=== PATIENT | male | born 1955 | race Caucasian/White ===

== ENCOUNTER 2024-07-15 05:14 | Outpatient (CLI) | payer MEDICARE, BC, SELFPAY | END 2024-07-15 05:15 | disposition home or self-care (01) | LOC: AMB 07-27 09:16 | PROVIDERS: PCP Family Medicine; Visit Provider Emergency Medicine Emergency Medical Services | DX: S09.93XA Unspecified injury of face, initial encounter (principal); R53.1 Weakness; W18.30XA Fall on same level, unspecified, initial encounter; Y92.008 Other place in unspecified non-institutional (private) residence as the place of occurrence of the external cause | CPT/HCPCS: A0425; A0429 ==

== ENCOUNTER 2024-07-15 05:58 | Inpatient (IN) | payer MEDICARE, BC, SELFPAY ==
[2024-07-15] VITALS (11 sets, daily range): BP systolic 103–133; BP diastolic 52–69; PULSE 60–80; RESP 16–20; TEMP 36.6–37.5; O2SAT 94–96; BMI 21.7; BMI 21.5
--- OUTSIDE RECORDS SUMMARY | 2024-07-15 06:00 | XMS_ITS | Clinical Summary ---
Author Organization [facility] Address [place], [place] [address] Care Team Providers Care Reporting Coordinator Name Role Phone Junito Yaneth Smith DO Primary Care Provider [phone] Allergies No known active allergies Medications cholecalciferol (Vitamin D-3) 2,000 unit capsule Take 4,000 units by mouth once daily. 0 09/25/2021 Active nitroglycerin (NITROSTAT) 0.4 mg sublingual tabletIndicatio ns:Abnormal stress ECG Place 1 Tablet (0.4 mg) under the tongue every 5 minutes if needed for Chest Pain. Up to 3 tablets in 15 minutes. 25 Tablet 04/03/2023 Active donepeziL (ARICEPT) 5 mg tablet Take 5 mg by mouth at bedtime. 10/08/2023 Active carbidopa-levod opa, 25-100 mg, (SINEMET 25-100) 25-100 mg tablet Take 1 Tablet by mouth three times daily. 10/08/2023 Active magnesium oxide 250 mg magnesium tablet Take 250 mg by mouth. Active pyridoxine, vitamin B6, (VITAMIN B6) 100 mg tablet Take 100 mg by mouth once daily. Active FOLIC ACID ORAL Take 1,000 mcg by mouth. Active cyanocobalamin (VITAMIN B12) 1,000 mcg tablet Take 1,000 mcg by mouth once daily. Active aspirin chewable 81 mg chewable tablet Chew 81 mg by mouth once daily with a meal. Active Active Problems Problem Noted Date Diagnosed Date Lacunar infarction 10/29/2023 Aneurysm of ascending aorta without rupture 02/2023 MCI (mild cognitive impairment) 05/13/2022 Overview (05/13/2022): Evaluated by neurology 2021 and had neuropsych testing. Possible early Dave Body Dementia per Neurology. See scanned consults Thoracic aortic aneurysm without rupture 018 Overview (05/21/2023): 4.0 cm on cardiac calcium score test 05/2017. Echocardiogram 06/2017 confirms 4cm so recommend repeat 6-12 months and then annually if stable 12/2017 echocardiogram stable at 4cm. Repeat 1 2019 echocardiogram stable at 4.0 2021 echocardiogram stable at 4.0 04/2023 The aortic root was borderline enlarged at 4.0 cm. Cardiology recommended follow up 2 years Family history of heart disease 03/13/2016 Overview (06/22/2017): 05/2017: See report. calcium score was 32 percentile which means he has mild calcified coronary artery plaque burden and generally overall low-moderate current cardiac risk per the report. The recomendations from this standpoint are for him to take a baby aspirin 81mg daily, eat healthy and exercise. The report did recommend his cholesterol be below the following levels: Total cholesterol <200, HDL >40, TG <200, LDL <100. Hyperplastic colon polyp 07/17/2014 Overview (07/17/2014): Colonoscopy 06/2014 polyp repeat in 10 years [facility] Overview (12/21/2014): 2000, evaluated by cardiology. Had echocardiogram, holter and stress test (see PAST MEDICAL HISTORY). Saw Dr Monterroso, cardiac electrophysiology and had multiple tests in research laboratory technician (not actual cath though) (see multiple scanned reports 2000, have good summaries): Thought vagal with evidence of autonomic dysfunction. Recommended treat with SSRI and sertraline started at that time. If episodes continued, discussed implanting possible loop recorder to verify significant bradycardia not contributing. BRADYCARDIA Resolved Problems Problem Noted Date Diagnosed Date Resolved Date FATIGUE 12/21/2014 Immunizations Name Administration Dates Next Due Td, Preservative Free (age >= 7 Years) 4 Tdap 02/15/2015 Zoster (Shingrix-RZV, recombinant) 07/24/2022 Family History Medical History Relation Name Comments Heart Disease Brother same valve dis ease-- at 41; 3 other brothers; 2 paternal uncles had MIs when around 70 Heart Disease Father valve disease- - at 52 Diabetes Mother type 2 later in life; 3 siblings as well Genetic Other Positive family history of premature cardiac deaths. Father at age 52. VT. Relation Name Status Comments Brother Father Mother Alive Other Social History Tobacco Use Types Packs/Day Years Used Date Smoking Tobacco: Never Passive Smoke Exposure: Never Smokeless Tobacco: Never Tobacco Cessation:Counseling Given: Yes Alcohol Use Standard Drinks/Week Comments Yes 0 (1 standard drink = 0.6 oz pur e alcohol) PHQ-2 Answer Date Recorded PHQ-2 TOTAL SCORE 0 03/15/2024 Social Connections Answer Date Recorded Do you often feel lonely or isolated from those around you? 0 10/29/2023 Alcohol Use Answer Date Recorded How often do you have a drink containing alcohol ? 2 07/24/2022 How many drinks containing a lcohol do you have on a typical day when you are drinking? 0 07/24/2022 How often do you have five or more drinks on one occasion? 0 07/24/2022 Financial Resource Strain Answer Date R ecorded Difficulty of Paying Living Expenses 3 10/29/2023 Difficulty of Paying Living Expenses Not on file 10/29/2023 Food Insecurity Answer Date Recorded Do you worry your food will run out before you are able to buy more? 1 10/29/2023 Transportation Needs Answer Date Record ed Does lack of transportation keep you from medica l appointments? 1 10/29/2023 Does lack of transportation keep you from work, meetings or getting things that you need? 1 10/29/2023 Housing Stability Answer Date Recorded What is your housing situation today? 1 10/29/2023 Utilities Answer Date Recorded Do you have trouble paying f or utilities (for example, heat, electricity, water, phone)? 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 Oxygen Saturation 100% 03/15/2024 11:14 AM CDT Inhaled Oxygen Concentration - - Weight 64.9 kg (143 lb) 03/15/2024 11:14 AM CDT Height 177.2 cm (5' 9.76) 03/15/2024 11:14 AM C DT Body Mass Index 20.66 03/15/2024 11:14 AM CDT Plan of Treatment Health Maintenance Due Date Last Done Comments Pneumococcal series for age 50+ (1 of 2 - PCV) 09/11/1974 RSV vaccine for adults or (1 - Risk 60-74 years 1-dose series) 2015 Zoster (shingles) series for age 50+ (2 of 2) 09/18/2022 07/24/2022 COVID-19 vaccine series ( - season) 2024 Influenza for age 65+ 02/14/2024 Colonoscopy through age 75 07/14/2024 07/14/2014 BMI (ht and wt on same day) for age 18+ 03/15/2025 03/15/2024, 07/24/2022, 07/10/2022, Additional history exists Medicare Wellness for age 65+ 03/16/2025 03/15/2024, 07/24/2022 Lipids for age 45-75 03/15/2029 03/15/2024, 06/23/2022, 09/11/2021, Additional history exists Tetanus booster 03/15/2034 03/15/2024, 02/15/2015 Tdap Completed 02/15/2015 Hepatitis C screening for ag e 18-79 Completed 01/13/2019 Procedures Procedure Name Priority Date/Time Associated Diagnosis Comments LIPID PANEL W REFLEX MEASURED LDL Routine 03/15/2024 12:12 PM CDT Aneurysm of ascending aorta without rupture (HC) ANTI HCV Routine 01/13/2019 1:44 PM CDT Need for hepatitis C screening test from Last 3 Months or Most Recently Relevant to Health Maintenance Results * (ABNORMAL) LIPID PANEL W REFLEX MEASURED LDL (03/15/2024 12:12 PM CDT) Pathologist [facility] [place] CHOLESTEROL, TOTAL 236(H) <200 mg/dL [facility] HDL CHOLESTEROL 72 > OR = 40 mg/dL [facility] TRIGLYCERIDES 77 <150 mg/dL [facility] LDL-CHOLESTEROL 146(H) mg/dL (calc) [facility] Comment: Reference range: <100 Desirable range <100 mg/dL for primary prevention; <70 mg/dL for patients with CHD or diabetic patients with > or = 2 CHD risk factors. LDL-C is now calculated using the Jeff calculation, which is a validated novel method providing better accuracy than the Friedewald equation in the estimation of LDL-C. Augustine SS et al. GOVIND. 2013;310(19): 2330-7121 (http://education.MedMark Services/faq/OTP625) CHOL/HDLC RATIO 3.3 <5.0 (calc) [facility] NON HDL CHOLESTEROL 164(H) <130 mg/dL (calc) [facility] Comment: For patients with diabetes plus 1 major ASCVD risk factor, treating to a non-HDL-C goal of <100 mg/dL (LDL-C of <70 mg/dL) is considered a therapeutic option. Blood BLOOD SPECIMEN / Unknown 03/15/2024 12:12 PM CDT 03/15/2024 12:13 PM CDT Yaneth Wild DO CHEMISTRY Final Resu lt [employer] [facility] [address] [place] [address], [facility] [address] [place] [address] * ANTI HCV (01/13/2019 1:44 PM CDT) Pathologist [facility] [place] HEPATITIS C ANTIBODY Non-React eden Non-React eden 01/14/2019 12:28 AM CDT [facility] Comment:Antibodies to HCV no t detected; does not exclude the possibility of exposure to HCV. Blood BLOOD SPECIMEN / Unknown Venipuncture / Unknown 01/13/2019 1:44 PM CDT 01/13/2019 2:13 PM CDT us Yaneth Smith Junito DO SEND OUTS Final Resu lt [facility] [address] [place] [address], [place] from Last 3 Months or Most Recently Relevant to Health Maintenance Insurance [employer] [place] BL[employer] MR PB ONLY MEDICARE PART B HB ONLY [employer] [place] BLUE HB ONLY Care Teams Reporting Coordinator Relationship Specialty Start Date End Date Yaneth Wild DO [address] [place] [address] PCP - General Family Practice 02/17/17
--- OUTSIDE RECORDS SUMMARY | 2024-07-15 06:00 | XMS_ITS | Clinical Summary ---
Author Organization [facility] Address [address] [place] [address] Care Team Providers Care Roofer Gypsum Name Role Phone Elsewhere, Pcp Primary Care Provider Unavailabl e Source Comments Patient records contain information from all sites at [facility]. For routine questions regarding patient records, call [phone] during business hours, M-F 8:00 AM - 5:00 PM Central Time. Record requests for emergency care only can be directed to [phone] at any time.[facility] Allergies No known active allergies Medications * This document contains information received from the source organization and may not represent a complete record from that organization. Lactobacillus acidophilus (Florajen Acidophilus) 20 billion cell capsule Take 1 capsule by mouth daily. Active cholecalciferol (VITAMIN D3) 50 mcg (2,000 Unit) capsule Take 100 mcg by mouth daily. Active pyridoxine, vitamin B6, (vitamin B-6) 100 mg tablet Take 100 mg by mouth daily. Active FOLIC ACID ORAL Take 1,000 mcg by mouth daily. Active cyanocobalamin (vitamin B-12) 1,000 mcg tablet Take 1,000 mcg by mouth daily. Active VITAMIN K2 ORAL Take by mouth daily. Vitamin K2 500 mcg tablet. Take 1/5 or 1/4 of a tablet daily. Active magnesium oxide (MAG-OX) 250 mg of magnesium tablet Take 250 mg by mouth daily. Active SALMON OIL-OMEGA-3 FATTY ACIDS ORAL Take 1,300 mg by mouth. Taken on an unscheduled basis, on days that salmon is not eaten. Active nitroglycerin (NITROSTAT) 0.[address] 0.4 mg under the tongue every 2 (two) hours as needed. 3 Active donepeziL (ARICEPT) 5 mg tablet Take 1 tablet (5 mg total) by mouth daily. 30 tablet 11 4 Active carbidopa-levodo pa (Sinemet) 25-100 mg per tablet Take 1 half tab 3 times daily for 1 week. If symptoms not better, increase by 1 half tab 3 times daily every week as needed per medication schedule to maximum of 3 tab 3 times daily. 270 tablet 12 4 Active Active Problems Problem Noted Date Diagnosed Date Unspecified Dementia Unspeci fied Severity Without Behavioral Disturbance Psychotic disturbance Mood Disturbance And Anxiety 10/08/2023 Social History Tobacco Use Types Packs/Day Years Used Date Smoking Tobacco: Never Passive Smoke Exposure: Never Smokeless Tobacco: Never [facility] [employer] Answer Date Recorded In the past 12 months has e [employer], gas, oil, or water [employer] threatened to shut off services in your home? No 10/01/2023 Exercise Vital Sign Answer Date Recorde d On average, how many days pe r week do you engage in moderate to strenuous exercise (like a brisk walk)? 3 days 09/29/2023 On average, how many minutes do you engage in exercise at this level? 20 min 09/29/2023 Hunger Vital Sign Answer Date Recorded Within the past 12 months, y ou worried that your food would run out before you got the money to buy more. Never true 10/01/19 24 Within the past 12 months, t he food you bought just didn't last and you didn't have money to get more. Never true 10/01/2023 PRAPARE - Transportation Answer Date Re corded In the past 12 months, has l ack of transportation kept you from medical appointments or from getting medications? No 09/13 In the past 12 months, has l ack of transportation kept you from meetings, work, or from getting things needed for daily living? No 10/01/2023 Nutrition Answer Date Recorded On average, how many serving s of fruits and vegetables do you eat per day (serving size is equal to 1 cup or approximately the size of a tennis ball)? 3-5 09/29/2023 Dental Answer Date Recorded Dental: Regular Dentist Yes 09/29/19 Employment Answer Date Recorded Employment status Retired 09/29/2023 Housing Stability Answer Date Recorded What is your living situation today? 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 Gender Identity Male 09/29/2023 2:03 PM CDT Sexual Orientation Straight 09/29/2023 2: 03 PM CDT Last Filed Vital Signs Vital Sign Reading Time Taken Comments Blood Pressure 111/66 10/05/2023 12:58 PM CDT Pulse 66 10/05/2023 12:58 PM CDT Temperature - - Respiratory Rate - - Oxygen Saturation - - Inhaled Oxygen Concentration - - Weight 64.6 kg (142 lb 6.7 oz) 10/05/2023 12:58 PM CDT Height 179.3 cm (5' 10.61) 10/05/2023 12:58 PM CDT Body Mass Index 20.08 10/05/2023 12:58 PM CDT Plan of Treatment Health Maintenance Due Date Last Done Comments CT Colonography 1955 Cologuard 1955 FIT 1955 Hepatitis C Screening 1955 Pneumococcal vaccine (50+ years) (1 of 1 - PCV) 09/11/2005 Zoster Vaccines (2 of 2) 09/18/2022 07/24/2022 COVID-19 Vaccine (1 - season) 2024 Influenza Vaccine (#1) 2024 Fall Risk Screen (Annual) 06/15/2024 Fasting Glucose for Diabetes Screening 10/04/2026 10/05/2023, 02/23/2023, 09/11/2021, Additional history exists Colonoscopy 07/13/2029 07/13/2019 Colorectal Cancer Screening 07/13/2029 DTaP,Tdap,and Td Vaccines (3 - Td or Tdap) 03/15/2034 03/15/2024, 02/15/2015 IPV Vaccines Aged Out No longer eligi ble based on patient's age to complete this topic Procedures Procedure Name Priority Date/Time Associated Diagnosis Comments COMPREHENSIVE METABOLIC PANEL, S/P Routine 10/05/2023 9:41 AM CDT Unspecified Dementia Unspecified Severity Without Behavioral Disturbance Psychotic disturbance Mood Disturbance And Anxiety (HCC) from Last 3 Months or Most Recently Relevant to Health Maintenance Results * Comprehensive Metabolic Panel (10/05/2023 9:41 AM CDT) Pathologist [facility] Potassium, S 4.4 3.6 - 5.2 mmol/L 10/05/2023 12:19 PM CDT DTL Sodium, S 142 135 - 145 mmol/L 10/05/2023 12:19 PM CDT DTL Chloride, S 104 98 - 107 mmol/L 10/05/2023 12:19 PM CDT DTL Bicarbonate, S 28 22 - 29 mmol/L 10/05/2023 12:15 PM CDT DTL Anion Gap 10 7 - 15 10/05/2023 12:19 PM CDT DTL BUN (Blood Urea Nitrogen), S 20 8 - 24 mg/dL 10/05/2023 12:15 PM CDT DTL Creatinine 1.02 0.74 - 1.35 mg/dL 10/05/2023 12:15 PM CDT DTL Estimated GFR (eGFR) 80 >=60 mL/min/BS A 10/05/2023 12:15 PM CDT DTL Comment: Estimated GFR calculated using the 2020 CKD_EPI creatinine equation. Calcium, Total, S 9.4 8.8 - 10.2 mg/dL 10/05/2023 12:15 PM CDT DTL Glucose, S 94 70 - 140 mg/dL 10/05/2023 12:15 PM CDT DTL Protein, Total, S 7.0 6.3 - 7.9 g/dL 10/05/2023 12:15 PM CDT DTL Albumin, S 4.6 3.5 - 5.0 g/dL 10/05/2023 12:15 PM CDT DTL Aspartate Aminotransferase (AST), S 20 8 - 48 U/L 10/05/2023 12:15 PM CDT DTL Alkaline Phosphatase, S 47 40 - 129 U/L 10/05/2023 12:15 PM CDT DTL Alanine Aminotransferase (ALT), S 26 7 - 55 U/L 10/05/2023 12:15 PM CDT DTL Bilirubin, Total, S 0.5 0.0 - 1.2 mg/dL 10/05/2023 12:15 PM CDT DTL Blood (Blood, Venous) 10/05/2023 9:41 AM CDT 10/05/2023 10:08 AM CDT Sha Aly M.D., Ph.D. LAB BLOOD ADD-ON Final Result [facility] [address] [place] [address], [place] DTL [facility] [address] [place] [address] from Last 3 Months or Most Recently Relevant to Health Maintenance Insurance [facility]ICARE [facility] Care Teams Roofer Gypsum Relationship Specialty Start Date End Date Elsewhere, Pcp PCP - General Internal Medicine 09/28/23
--- OUTSIDE RECORDS SUMMARY | 2024-07-15 06:00 | XMS_ITS | Clinical Summary ---
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 Medications Administered No information available. Allergies, Adverse Reactions, Alerts Allergy Name Reaction Description Start Date Severity Statu s Provider No known active allergies No known active allergies Mild Active Pieter Tirado MD Results Date Name Value Unit Range Flag Description Office Visit: Office Visit M carolyn problem, impaired proprioception Mri fax [id number] Assessment of cognition performed and results reviewed. Total score [MMS E] [id number] Mild Total scor e [MoCA] MMSE SCORE 24 Total scor e [MMSE] Internal Other: Verbal Autho rization/Emergency Contact - OBS VERBAL_EMER DONE Verbal authorization and emergency contact Internal Other: Authorizatio n - OBS [email or web address] Yes Authoriza tion: Release of Information - Authorize [facility] - Payment and Healthcare Operations ROIAUTHOTHER Yes Authoriz ation: Release of Information - Authorize Others/Insurance - Payment and Healthcare Operations HIECONSENT Yes Consent To Release information to the Health Information Exchange (HIE) [email or web address] Yes Authorizat ion: Authorization for Noran/MDC to leave messages, voicemail, send text messages, send emails AUTHRELHCARE Yes Authoriz ation: Release/Retrieval of Information to/from Healthcare Facilities, Pharmacy Benefit Payers and Providers AUTHPRIVPRAC Yes Authoriz ation: Notice of privacy practices AUTHBENEFIT Yes Authoriza tion: Assignment of Benefits and Payment Agreement Telemedicine: Telemedicine V isit fax MEDS REVIEW Done Documenta tion of current medications (procedure) Plan of Care Type Date Detail Pending order Follow up in cli tereso or telemedicine Pending order Follow up LASHELL in clinic or telemedicine Pending order Follow up LASHELL in clinic or telemedicine Pending order Patient Instruct ions Pending order Follow up teleme dicine Pending order Neuropsychology Evaluation Pending order Follow up teleme dicine Pending order Neuropsychology Evaluation Pending order Patient Instruct ions Procedures Code Procedure Name Date Entry Date [facility]-[id number] Documentation of current medicatio ns ORDERS Patient Instructions [facility]-[id number] Documentation of current medicatio ns LOINC 19669-1 MMSE ORDERS Patient Instructions Vital Signs No information available. Immunizations No information available. Advance Directives No information available.
--- OUTSIDE RECORDS SUMMARY | 2024-07-15 06:01 | XMS_ITS | Data Portability ---
Author Organization [place] - [place] [facility], [facility] Address [address] [place] [address] Care Team Providers Care Mechanical Estimator Name Role Phone JOSETTE WILD Primary Care Provider [phone] Assessment Encounter Date Assessment Date Assessment LastModified by Organization Details LastModified Time 01/26/2024 01/26/2024 68 year old male with a history of Parkinson's disease and lower urinary tract symptoms. Not available 01/25/2024 16:08:42 Plan of Treatment Reminders Order Date Submit Date Provider Last Modified By Organization Details Last Modified Time Details Appointments ESTABLISH ED 20 2024 08:40A M Maksim Walton PA-C Not available Not available Not available Lab None recorded. Referral None recorded. Procedures electromy ography studies (EMG) of anal or urethral sphincter , other than needle (PROC) 2023 024 [email or web address] Not available 02/03/2024 08:14:43 complex cystometr ogram with voiding pressure studies (PROC) 2023 024 Not available 02/03/2024 08:14:44 complex uroflowme try (PROC) 2023 024 Not available 02/03/2024 08:14:44 Surgeries None recorded. Imaging None recorded. Medication Orders None recorded. Patient TargetsNo targets recorded. Patient Instructions Encounter Date Encounter Id Patient Instructions Last Modified By Organization Details Last Modified Time 01/26/2024 [id number] Lower urinary tract symptoms/Overacti ve bladder: We reviewed the relevant anatomy and how neurologic conditions can contribute to overactive bladder and urgency with incontinence. I suspect this is the cause for Maverick's symptoms. That being said, we did discuss obstructive uropathy can be co-morbid requiring a different focus in management. He is emptying well, but I would like to check a pressure flow study to ensure he is not harboring mounting obstruction. If this is normal, the preference is to monitor for now given improvement with his medications. I will call when I have these results, but otherwise I would recommend at least annual assessment to ensure he does not develop obstruction. Not available 01/26/2024 10:13:59 Reason for Referral None Reported. Problems Name Problem SNOMED Code Status Onset Date Resolution Date Notes Provider Name and Address Organization Details Recorded Time Aneurysm of ascending aorta 598666710 Active 2023 Moi Meat null, [facility] 4 14:20:18 Mild neurocognitive disorder 843425872 Active 2023 Moi Meat null, [facility] 14:20:26 Polyp of colon 58053214 Active 2023 Moi Meat null, [facility] 14:20:35 Dementia 60630821 Active 2023 Moi Meat null, [facility] 4 14:20:51 Lacunar infarction 433556420 Active 2023 Moi Meat null, [facility] 4 14:21:28 Aneurysm of thoracic aorta 119414895 Active 2023 Moi Meat null, [facility] 14:21:39 Problem Notes None recorded. Procedures Surgical History Date Name Laterality Status Provider Name and Address Organization Details Recorded Time 4 COMPLEX VISIT completed Pasquale Jarquin MD [address] [place] [address],[address], [address], [facility] 01/25/2024 16:08:23 4 Past Data Reviewed completed Pasquale Jarquin MD [address] [place] [address],[address], [place], [address], [facility] 01/25/2024 16:08:22 4 Bladder Scan completed [facility] 01/26/2024 10:03:50 01/30/202 0 Colonoscopy completed Moi [facility] 01/26/2024 10:00:09 Imaging Results None recorded. Procedure Notes None recorded. Medical Equipment None Reported. Allergies No known drug allergies Medications Name Sig Start Date Stop Date Status Note LastModified by Organization Details LastModified Time donepezil 5 mg tablet TAKE 1 TABLET (5 MG TOTAL) BY MOUTH DAILY. active Not Available Not Available No t Available nitroglycer in 0.[address] 1 TABLET (0.4 MG) UNDER THE TONGUE EVERY 5 MINUTES IF NEEDED FOR CHEST PAIN. UP TO 3 TABLETS IN 15 MINUTES. 01/25 completed Not Available Not Available Not Available carbidopa 25 mg-levodopa 100 mg tablet TAKE 1/2 TABLET 3 TIMES DAILY FOR 1 WEEK. IF SYMPTOMS NOT BETTER, INCREASE 1/2 TABLET 3 TIMES DAILY EVERY WEEK NEEDED.MA X:3 TABS 3 TIMES DAILY. active Not Available Not Available No t Available Vitals Date Recorded Body height Provider Name an d Address Organization Details Last Updated DateTime 01/26/2024 177.8 cm Moi [facility] 09:58:17 Date Recorded Body mass index (BMI) Body weight Provider Name and Address Organization Details Last Updated DateTime 01/26/2024 20.1 kg/m2 36895.93 g Moi [facility] 01/26/2024 09:58:25 Social History Question Answer Notes LastModified by Organizat ion Details LastModified Time Tobacco Smoking Status [facility] 01/26/2024 09:59:35 What Is Your Level Of Alcohol Consumption? Occasional Information not available 01/26/2024 What Is Your Level Of Caffeine Consumption? Moderate Information not available 01/26/2024 What Was The Date Of Your Most Recent Tobacco Screening? 01/26/2024 Information not available 01/26/2024 Have You Ever Been Counseled For Unhealthy Alcohol Use? No Information not available 01/26/2024 Do You Use Any Illicit Or Recreational Drugs? No Information not available 01/26/2024 Has Tobacco Cessation Counseling Been Provided? No Information not available 01/26/2024 Do You Or Have You Ever Used Any Other Forms Of Tobacco Or Nicotine? No Information not available 01/26/2024 How Many Days In The Past Year Have You Consumed 5 Or More Drinks? 0 Information no t available 01/26/2024 Sex: Unknown Functional Status None recorded. Mental Status None recorded. Family History Relationship Description Onset Age of this Age Resolved Age Notes LastModified by Organization Details LastModified Time Father No current problems or disability [email or web address] Not available 01/25 09:59:07 Mother No current problems or disability ameath Not available 01/25 09:59:07 Medical History No medical history recorded. Immunizations Vaccine Type Date Status Note Provider Nam e and Address Organization Details Recorded Time zoster recombinant 07/24/2022 completed Moi leon [facility] 01/26/2024 09:58:29 Tdap 02/15/2015 completed Moi leon [facility] 01/26/2024 09:58:29 Past Encounters Encounter ID Performer Location Encounter Start Date Encounter Closed Date Diagnosis/Indication Diagnosis SNOMED-CT Code Diagnosis ICD10 Code Diagnosis Note [id number] Pasquale Jarquin MD [facility] [address] [place] [address] 01/26/2024 08:02:33 01/26/2024 10:28:32 Lower urinary tract symptoms 422784102 R39.9 Parkinson's disease 4904 9000 G20.A1 Overactive urinary bladder 628516559 N32.81 [id number] Pasquale Jarquin MD [facility] [address] [facility] [address] [place] [address] 02/23/2024 11:56:47 02/29/2024 09:08:35 Health Concerns Section Related Observation LastModified by Organization Detai ls LastModified Time None Recorded Concern Status LastModified by Organization Details LastModified Time None Recorded Advance Directives Directive None Recorded Payers Encounter Date Sequence Insurance Name Policy Number Policy Tripathi Covered Member ID Tripathi Member ID Guarantor Name 01/26/2024 1 [place]) [id number] Maverick Irving [id number] Maverick Irving 02/23/2024 1 [place] [id number] Maverick Irving [id number] Maverick Louumesh Notes Date Note Type Note Provider Name and Address Organization Details Recorded Time 01/26/2024 text/html This is a 68 yea r old male who is referred by Dr. Wild for the evaluation and management of lower urinary tract symptoms. He has been struggling with urinary urgency, frequency, and nocturia.These had been worsening in the last year.Maverick has a history of Lewy body dementia that has a component of Parkinson's.He is currently taking carbidopa/levodopa and donepezil.Since starting these medications he has noticed improvement.He has expected urinary discoloration but denies gross hematuria. His most recent prostate specific antigen was 0.52 ng/mL (09/11/2021) Pasquale Jarquin MD [address] [facility],[address], [place], [address], [facility] 01/26/2024 10:14:17
--- NOTE | 2024-07-15 06:21 | CRLHL7_ITS ---
For Patients: As a result of the Century Cures Act, medical imaging exams and procedure reports are released immediately into your electronic medical record. You may view this report before your referring provider. If you have questions, please contact your health care provider. INDICATION: Injury COMPARISON: None TECHNIQUE: CT examination of the cervical spine is performed without contrast using spiral technique. Thin axial, sagittal and coronal reconstructions were made. Please note that all CT scans at this facility use dose modulation, iterative reconstruction, and/or weight-based dosing when appropriate to reduce radiation dose to as low as reasonably achievable. FINDINGS: : Bone mineral density appears decreased. The height of the vertebral bodies and the caliber of the intervertebral disc space is normal. No significant bony arthritic changes. No visible acute fracture, dislocation or destructive process. IMPRESSION: No visible acute post-traumatic findings. Please note that all CT scans at this facility use dose modulation, iterative reconstruction, and/or weight-based dosing when appropriate to reduce radiation dose to as low as reasonably achievable. Dictated by Daniel Castro MD @ 07/15/2024 7:21:07 AM (Electronically Signed)
--- NOTE | 2024-07-15 06:21 | CRLHL7_ITS ---
For Patients: As a result of the Cures Act, medical imaging exams and procedure reports are released immediately into your electronic medical record. You may view this report before your referring provider. If you have questions, please contact your health care provider. INDICATION: Shortness of breath. COMPARISON: None available. TECHNIQUE: 1 view. FINDINGS: The patient is slightly rotated rightward. Medical Devices: None. Lung Volumes: Adequate inspiration. No significant atelectasis. Lungs: Asymmetrical right basilar coarse reticular opacities without coalescent consolidation. Findings are consistent with atypical (viral or mycoplasma) pneumonia. The left lung is clear. Pleura and Pleural spaces: No significant pleural effusion. No pneumothorax. Mediastinum: Normal cardiomediastinal silhouette. Bony Thorax and Soft Tissues: No significant incidental findings. IMPRESSION: Asymmetrical right basilar coarse reticular opacities without coalescent consolidation. Findings are consistent with atypical (viral or mycoplasma) pneumonia. No associated right parapneumonic effusion. Dictated by Nabil Benz MD @ 07/15/2024 6:49:52 AM (Electronically Signed)
--- NOTE | 2024-07-15 06:21 | CRLHL7_ITS ---
For Patients: As a result of the Century Cures Act, medical imaging exams and procedure reports are released immediately into your electronic medical record. You may view this report before your referring provider. If you have questions, please contact your health care provider. Indication: Injury Technique: CT examination of brain was performed. Imaging was acquired from the skull base to the vertex. Sagittal and coronal reformatted imaging was performed. Comparison: None Findings: No acute calvarial injury. Paranasal sinus mucosal inflammatory changes incidentally noted. There is cortical and central atrophy. Periventricular white matter changes are probably due to small-vessel ischemia. There is no mass effect, midline shift, hemorrhage, edema or subacute infarction. There is no abnormal extra-axial fluid collection. Impression: No acute posttraumatic findings. Involutional changes. Please note that all CT scans at this facility use dose modulation, iterative reconstruction, and/or weight-based dosing when appropriate to reduce radiation dose to as low as reasonably achievable. Dictated by Daniel Castro MD @ 07/15/2024 7:17:11 AM (Electronically Signed)
--- NOTE | 2024-07-15 06:22 | ED.GENADULT ---
HPI - General Adult General Chief complaint: Weakness <Isael Rodriguez MD - Last Filed: 07/15/24 06:25> Stated complaint: Weakness <Isael Rodriguez MD - Last Filed: 07/15/24 06:25> Time Seen by Provider: 07/15/24 06:28 <Isael Rodriguez MD - Last Filed: 07/15/24 06:25> History of Present Illness HPI narrative: Patient is a 68-year-old gentleman with Lewy body dementia who lives his of many years. He had a fall low last night striking his right cheek on the fireplace mantle. He has obvious swelling and minor abrasion on the cheek. More importantly the patient has had increasing agitation and worsening cognition over the last days to weeks. Patient is having a very hard time following direction and has had a very unsteady gait. Patient has been on stable Sinemet and Donepezil. Patient's is been taking extremely good care of him but she has noticed a major change in his level of functioning as well as his level of cognition. <Isael Rodriguez MD - Last Filed: 07/15/24 06:25> Related Data Home medications: Home Medications ?Medication ?Instructions ?Recorded ?Confirmed carbidopa 25 mg-levodopa 100 mg 0.5 tab PO DIRECTED 07/15/24 07/15/24 tablet donepezil 5 mg tablet 5 mg PO DAILY 07/15/24 07/15/24 <Isael Rodriguez MD - Last Filed: 07/15/24 06:25> Allergies/adverse reactions: Allergies Allergy/AdvReac Type Severity Reaction Status Date / Time No Known Drug Allergies Allergy Verified 01/21/23 12:38 <Isael Rodriguez MD - Last Filed: 07/15/24 06:25> Review of Systems Status of ROS: Reports: unobtainable due to medical condition <Isael Rodriguez MD - Last Filed: 07/15/24 06:25> [facility] Medical History: Medical History Lacunar infarction ?I63.81 - Other cerebral infarction due to occlusion or stenosis of small artery (ICD-10) MCI (mild cognitive impairment) ?G31.84 - Mild cognitive impairment of uncertain or unknown etiology (ICD-10) Thoracic aortic aneurysm without rupture ?I71.20 - Thoracic aortic aneurysm, without rupture, unspecified (ICD-10) Hyperplastic colon polyp ?K63.5 - Polyp of colon (ICD-10) Bradycardia ?R00.1 - Bradycardia, unspecified (ICD-10) Syncope ?R55 - Syncope and collapse (ICD-10) <Isael Rodriguez MD - Last Filed: 07/15/24 06:25> Social History: Social History Smoking Status: Never smoker Second hand tobacco smoke exposure: No How often do you have a drink containing alcohol: never AUDIT-C Alcohol total score: 0 Non-prescribed substance use: denies use <Isael Rodriguez MD - Last Filed: 07/15/24 06:25> Exam Narrative: Exam Narrative: EXAM GENERAL: Patient appears confused and lethargic. EYES: No scleral icterus. LYMPH: No supraclavicular or cervical lymphadenopathy. SKIN: Swelling with abrasion over the right cheek. EXT: No dependent lower extremity pedal edema. HEART: Regular rate and rhythm with no murmurs, rubs, or gallops. LUNGS: Clear to auscultation bilaterally with no crackles or wheezes. ABD: Soft, non tender, non distended. PSYCH: Patient does not follow commands and full neuro exam is unable to be performed. <Isael Rodriguez MD - Last Filed: 07/15/24 06:25> Const: Vital Signs, click to edit/add: Vital Signs - 24 hr 07/15/24 06:02 07/15/24 06:50 Temperature 98.6 F Pulse Rate [Right Pulse Oximeter] 80 Blood Pressure [Ri ght Upper Arm] 133/69 Pulse Oximetry 96 96 Oxygen Delivery Me thod Room Air <Isael Rodriguez MD - Last Filed: 07/15/24 06:25> Vital Signs, click to edit/add: Vital Signs - 24 hr 07/15/24 06:02 07/15/24 06:50 Temperature 98.6 F Pulse Rate [Right Pulse Oximeter] 80 Blood Pressure [Ri ght Upper Arm] 133/69 Pulse Oximetry 96 96 Oxygen Delivery Me thod Room Air <Lalitha Heredia MD - Last Filed: 07/15/24 08:14> Course Course ED Course: Very concerned about the patient's clinical presentation. I did start with CT head neck. Chest x-ray UA CMP CBC lactic acid. <Isael Rodriguez MD - Last Filed: 07/15/24 06:25> Very concerned about the patient's clinical presentation. I did start with CT head neck. Chest x-ray UA CMP CBC lactic acid. I was asked to follow up on the laboratory investigations of this patient. CBC shows mild pancytopenia. Mild hyponatremia 132. Normal lactate. Triple swab is positive for influenza A. <Lalitha Heredia MD - Last Filed: 07/15/24 08:14> Vital Signs Vital signs: Initial Vital Signs Temperature 98.6 F 07/15/24 06:02 Temperature Source Temporal Artery Scan 07/15/24 06:02 Pulse Rate 80 07/15/24 06:02 Blood Pressure 133/69 07/15/24 06:02 Blood Pressure Mean 90 07/15/24 06:02 Blood Pressure Position Sitting 07/15/24 06:02 Pulse Oximetry 96 07/15/24 06:02 Oxygen Delivery Method Room Air 07/15/24 06:02 Vital Signs Temperature 98.6 F 07/15/24 06:02 Pulse Rate 80 07/15/24 06:02 Blood Pressure 133/69 07/15/24 06:02 Pulse Oximetry 96 07/15/24 06:02 Oxygen Delivery Method Room Air 07/15/24 06:02 Temperature 98.6 F 07/15/24 06:02 Pulse Rate 80 07/15/24 06:02 Blood Pressure 133/69 07/15/24 06:02 Pulse Oximetry 96 07/15/24 06:50 Oxygen Delivery Method Room Air 07/15/24 06:02 <Isael Rodriguez MD - Last Filed: 07/15/24 06:25> Initial Vital Signs Temperature 98.6 F 07/15/24 06:02 Temperature Source Temporal Artery Scan 07/15/24 06:02 Pulse Rate 80 07/15/24 06:02 Blood Pressure 133/69 07/15/24 06:02 Blood Pressure Mean 90 07/15/24 06:02 Blood Pressure Position Sitting 07/15/24 06:02 Pulse Oximetry 96 07/15/24 06:02 Oxygen Delivery Method Room Air 07/15/24 06:02 Vital Signs Temperature 98.6 F 07/15/24 06:02 Pulse Rate 80 07/15/24 06:02 Blood Pressure 133/69 07/15/24 06:02 Pulse Oximetry 96 07/15/24 06:02 Oxygen Delivery Method Room Air 07/15/24 06:02 Temperature 98.6 F 07/15/24 06:02 Pulse Rate 80 07/15/24 06:02 Blood Pressure 133/69 07/15/24 06:02 Pulse Oximetry 96 07/15/24 06:50 Oxygen Delivery Method Room Air 07/15/24 06:02 <Lalitha Heredia MD - Last Filed: 07/15/24 08:14> Medications Administered Medications: Discontinued Medications Generic Name Dose Route Start Last Admin Trade Name Freq PRN Reason Stop Dose Admin Ceftriaxone Sodium 1 gm/ 100 mls @ 200 mls/hr 07/15/24 06:53 07/15/24 07:37 Sodium Chloride IVPB 07/15/24 06:54 200 mls/hr ONCE ONE Administration <Isael Rodriguez MD - Last Filed: 07/15/24 06:25> Discontinued Medications Generic Name Dose Route Start Last Admin Trade Name Freq PRN Reason Stop Dose Admin Ceftriaxone Sodium 1 gm/ 100 mls @ 200 mls/hr 07/15/24 06:53 07/15/24 07:37 Sodium Chloride IVPB 07/15/24 06:54 200 mls/hr ONCE ONE Administration <Lalitha Heredia MD - Last Filed: 07/15/24 08:14> Medical Decision Making MDM Narrative Medical decision making narrative: 60-year-old male with influenza a, weakness, confusion and a fall. Patient will be admitted for further management. <Lalitha Heredia MD - Last Filed: 07/15/24 08:14> Lab Data Labs: Lab Results 07/15/24 07/15/24 Range/Units 06:06 06:32 WBC 3.93 L (4.50-11.00) K/uL RBC 4.42 (4.30-5.90) m/uL Hgb 12.6 L (13.5-17.5) gm/dL Hct 36.8 L (37.0-53.0) % MCV 83 (80-100) fL MCH 29 (26-34) pg MCHC 34 (32-36) gm/dL RDW Coeff of Marquis 11.6 (11.5-15.5) % Plt Count 107 L (140-440) K/uL Neut % (Auto) 84.2 H (42.0-72.0) % Lymph % (Auto) 4.3 L (20-44) % Sunflower % (Auto) 11.2 H (0.0-11.0) % Eos % (Auto) 0.0 (0.0-7.0) % Baso % (Auto) 0.0 (0.0-3.0) % Neut # (Auto) 3.30 (1.7-7.0) K/uL Lymph # (Auto) 0.20 L (0.90-2.90) K/uL Sunflower # (Auto) 0.40 (0.00-0.90) K/UL Eos # (Auto) 0.00 (0.00-0.50) K/uL Baso # (Auto) 0.00 (0.00-0.30) K/uL Abs Immat Gran (auto) 0.00 (0.00-0.30) K/uL Imm/Tot Granulo (auto) 0.3 % Sodium 132 L (135-149) mmol/L Potassium 4.3 (3.6-5.1) mmol/L Chloride 99 (96-114) mmol/L Carbon Dioxide 27 (20-32) mmol/L Anion Gap 6 L (7-15) mEq/L BUN 18 (7-30) mg/dL Creatinine 0.8 (0.5-1.5) mg/dL Estimated Creat Clear 72.58 Estimated GFR 96 ml/min Glucose 128 H (60-115) mg/dL Lactate 0.8 (0.5-1.9) mmol/L Calcium 8.3 L (8.4-10.6) mg/dL Total Bilirubin 0.6 (0.1-1.5) mg/dL AST 23 (12-35) U/L ALT 16 (4-50) U/L Alkaline Phosphatase 43 (40-150) U/L Total Protein 6.5 (6.0-8.3) g/dL Albumin 3.8 (3.3-5.0) g/dL Procalcitonin 0.14 (<0.50) ng/mL SARS-CoV-2 (PCR) Negative SARS-CoV-2 (Negative) Influenza Type A (PCR) POSITIVE PCR FLU A A (Negative) Influenza Type B (PCR) Negative PCR FLU B (Negative) RSV (PCR) Negative PCR RSV (Negative) <Isael Rodriguez MD - Last Filed: 07/15/24 06:25> Lab Results 07/15/24 07/15/24 Range/Units 06:06 06:32 WBC 3.93 L (4.50-11.00) K/uL RBC 4.42 (4.30-5.90) m/uL Hgb 12.6 L (13.5-17.5) gm/dL Hct 36.8 L (37.0-53.0) % MCV 83 (80-100) fL MCH 29 (26-34) pg MCHC 34 (32-36) gm/dL RDW Coeff of Marquis 11.6 (11.5-15.5) % Plt Count 107 L (140-440) K/uL Neut % (Auto) 84.2 H (42.0-72.0) % Lymph % (Auto) 4.3 L (20-44) % Sunflower % (Auto) 11.2 H (0.0-11.0) % Eos % (Auto) 0.0 (0.0-7.0) % Baso % (Auto) 0.0 (0.0-3.0) % Neut # (Auto) 3.30 (1.7-7.0) K/uL Lymph # (Auto) 0.20 L (0.90-2.90) K/uL Sunflower # (Auto) 0.40 (0.00-0.90) K/UL Eos # (Auto) 0.00 (0.00-0.50) K/uL Baso # (Auto) 0.00 (0.00-0.30) K/uL Abs Immat Gran (auto) 0.00 (0.00-0.30) K/uL Imm/Tot Granulo (auto) 0.3 % Sodium 132 L (135-149) mmol/L Potassium 4.3 (3.6-5.1) mmol/L Chloride 99 (96-114) mmol/L Carbon Dioxide 27 (20-32) mmol/L Anion Gap 6 L (7-15) mEq/L BUN 18 (7-30) mg/dL Creatinine 0.8 (0.5-1.5) mg/dL Estimated Creat Clear 72.58 Estimated GFR 96 ml/min Glucose 128 H (60-115) mg/dL Lactate 0.8 (0.5-1.9) mmol/L Calcium 8.3 L (8.4-10.6) mg/dL Total Bilirubin 0.6 (0.1-1.5) mg/dL AST 23 (12-35) U/L ALT 16 (4-50) U/L Alkaline Phosphatase 43 (40-150) U/L Total Protein 6.5 (6.0-8.3) g/dL Albumin 3.8 (3.3-5.0) g/dL Procalcitonin 0.14 (<0.50) ng/mL SARS-CoV-2 (PCR) Negative SARS-CoV-2 (Negative) Influenza Type A (PCR) POSITIVE PCR FLU A A (Negative) Influenza Type B (PCR) Negative PCR FLU B (Negative) RSV (PCR) Negative PCR RSV (Negative) <Lalitha Heredia MD - Last Filed: 07/15/24 08:14> Discharge Plan Discharge Clinical Impression: Influenza A, Confusion, Fall <Isael Rodriguez MD - Last Filed: 07/15/24 06:25> Patient Disposition: Admitted As Observation <Isael Rodriguez MD - Last Filed: 07/15/24 06:25> Condition: Stable <Isael Rodriguez MD - Last Filed: 07/15/24 06:25> Prescriptions: No Action carbidopa-levodopa 25-100 mg tablet 0.5 tab PO DIRECTED Patient Comments: TAKE 1/2 TABLET 3 TIMES DAILY FOR 1 WEEK. IF SYMPTOMS NOT BETTER, INCREASE 1/2 TABLET 3 TIMES DAILY EVERY WEEK NEEDED.MAX:3 TABS 3 TIMES DAILY. donepezil 5 mg tablet 5 mg PO DAILY <Isael Rodriguez MD - Last Filed: 07/15/24 06:25> Follow Up/Referrals: Stortz,Yaneth A, DO [Primary Care Provider] - <Isael Rodriguez MD - Last Filed: 07/15/24 06:25>
--- OUTSIDE RECORDS SUMMARY | 2024-07-15 06:36 | XMS_ITS | Clinical Summary ---
Author Organization [facility] Address [address] [place] [address] Care Team Providers Care Utility Worker Name Role Phone Elsewhere, Pcp Primary Care Provider Unavailabl e Source Comments Patient records contain information from all sites at [facility]. For routine questions regarding patient records, call [phone] during business hours, M-F 8:00 AM - 5:00 PM Central Time. Record requests for emergency care only can be directed to [phone] at any time.[facility] Allergies No known active allergies Medications * [...] Passive Smoke Exposure: Never Smokeless Tobacco: Never [facility] [employer] Answer Date Recorded In the past 12 months has e I.Predictus, gas, oil, or water [employer] threatened to shut off services in your [...] your living situation today? 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 LAB BLOOD ADD-ON Final Result [facility] [address] [place] [address], [place] DTL [facility] [address] [place] [address] from Last 3 Months or Most Recently Relevant to Health Maintenance Insurance MEDICARE [facility] Care Teams Utility Worker Relationship Specialty Start Date End Date Elsewhere, Pcp PCP - General Internal Medicine 09/28/23
--- OUTSIDE RECORDS SUMMARY | 2024-07-15 06:36 | XMS_ITS | Clinical Summary ---
Author Organization [facility] Address [place], [place] [address] Care Team Providers Care Boat Rental Clerk Name Role Phone Junito Yaneth Smith DO Primary Care Provider [phone]- [phone] Allergies No known active allergies Medications cholecalciferol [...] cardiac electrophysiology and had multiple tests in dairy lab technician (not actual cath though) (see multiple [...] premature cardiac deaths. Father at age 52. [place]. 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 Respiratory Rate 20 07/10/2022 9:25 AM OIL WELL SERVICE OPERATOR Oxygen Saturation 100% 03/15/2024 11:14 AM CDT [...] [facility], [place] CHOLESTEROL, TOTAL 236(H) <200 mg/dL [facility] HDL CHOLESTEROL 72 > OR = 40 mg/dL [facility] TRIGLYCERIDES 77 <150 mg/dL [facility] LDL-CHOLESTEROL 146(H) mg/dL (calc) [facility] Comment: Reference range: <100 Desirable range <100 mg/dL for primary prevention; <70 mg/dL for patients with CHD or diabetic patients with > or = 2 CHD risk factors. LDL-C is now calculated using the Jeff calculation, which is a validated novel method providing better accuracy than the Friedewald equation in the estimation of LDL-C. Augustine SS et al. GOVIND. 2013;310(19): 9831-8286 (http://education.HomeMe.ru/faq/GZC180) CHOL/HDLC RATIO 3.3 <5.0 (calc) [facility] NON HDL CHOLESTEROL 164(H) <130 mg/dL (calc) [facility] Comment: For patients with diabetes plus 1 major ASCVD risk factor, treating to a non-HDL-C goal of <100 mg/dL (LDL-C of <70 mg/dL) is considered a therapeutic option. Blood BLOOD SPECIMEN / Unknown 03/15/2024 12:12 PM CDT 03/15/2024 12:13 PM CDT Yaneth Wild DO CHEMISTRY Final Resu lt [facility] [address] [place] [address], [facility] [address] [place] [address] * ANTI HCV (01/13/2019 1:44 PM CDT) Pathologist [facility] [place] HEPATITIS C ANTIBODY Non-React eden Non-React eden 01/14/2019 12:28 AM CDT [facility] Comment:Antibodies to HCV no t detected; does not exclude the possibility of exposure to HCV. Blood BLOOD SPECIMEN / Unknown Venipuncture / Unknown 01/13/2019 1:44 PM CDT 01/13/2019 2:13 PM CDT us Yaneth Smith Junito DO SEND OUTS Final Resu lt [facility] [address] [place] [address], [place] from Last 3 Months or Most Recently Relevant to Health Maintenance Insurance [employer] [place] [employer] PB ONLY MEDICARE PART B HB ONLY [employer] [place] BL[employer] HB ONLY Care Teams Boat Rental Clerk Relationship Specialty Start Date End Date Yaneth Wild DO [address] [place] [address] PCP - General Family Practice 02/17/17
--- OUTSIDE RECORDS SUMMARY | 2024-07-15 06:36 | XMS_ITS | Clinical Summary ---
Author Organization [facility] Address [address] , [address] [place] [address] Phone Care Team Providers Care Blocklayer Name Role Phone Nya Cleary Unavailable Unavailable Conditions or Problems Problem Name Problem Code Onset Date Status Entry Date Provider Comment Standard Description Annotate Mild cognitive impairment 373329991 (SNOMED CT) Active Pieter Tirado MD Mild neurocognitive disorder Memory loss 32153915 (SNOMED CT) Active Pieter Tirado MD Amnesia Thoracic aortic aneurysm without rupture I71.2 (ICD-10-CM) Active Pieter Tirado MD Thoracic aortic aneurysm, without rupture Syncope and collapse 558978268 (SNOMED CT) Active Pieter Tirado MD Syncope [...] and results reviewed. Total score [MMS E] [id number] Mild Total scor e [MoCA] MMSE SCORE [...] Procedures Code Procedure Name Date Entry Date [facility]-[id number] Documentation of current medicatio ns ORDERS Patient Instructions [facility]-[id number] Documentation of current medicatio ns LOINC 87426-2 MMSE ORDERS Patient Instructions Vital Signs No information available. Immunizations No information available. Advance Directives No information available.
[2024-07-15 06:44] LABS: Lactate* 0.8 mmol/L (0.5-1.9)
[2024-07-15 06:57] LABS: Hematocrit 36.8 % (37.0-53.0); Hemoglobin* 12.6 gm/dL (13.5-17.5); Immature Granulocytes Pct Auto 0.3 %; Lymphocytes Percent Auto 4.3 % (20-44); Mean Corpuscular HGB Conc 34 gm/dL (32-36); Mean Corpuscular Hemoglobin 29 pg (26-34); Mean Corpuscular Volume 83 fL (80-100); Monocytes Percent Auto 11.2 % (0.0-11.0); Neutrophils Percent Auto 84.2 % (42.0-72.0); Platelet Count* 107 K/uL (140-440); RDW Coefficient of Variation % 11.6 % (11.5-15.5); Red Blood Count 4.42 m/uL (4.30-5.90); White Blood Count* 3.93 K/uL (4.50-11.00)
[2024-07-15 07:00] LABS: Albumin* 3.8 g/dL (3.3-5.0); Chloride* 99 mmol/L (96-114); Potassium* 4.3 mmol/L (3.6-5.1); Sodium* 132 mmol/L (135-149)
[2024-07-15 07:03] LABS: Alanine Aminotransferase* 16 U/L (4-50); Alkaline Phosphatase* 43 U/L (40-150); Anion Gap 6 mEq/L (7-15); Aspartate Amino Transferase* 23 U/L (12-35); Bilirubin Total* 0.6 mg/dL (0.1-1.5); Blood Urea Nitrogen* 18 mg/dL (7-30); Carbon Dioxide* 27 mmol/L (20-32); Creatinine* 0.8 mg/dL (0.5-1.5); Est. Creatinine Clearance* 72.58; Estimated Glomerular Filt Rate 96 ml/min; Glucose* 128 mg/dL (60-115); Total Protein* 6.5 g/dL (6.0-8.3)
[2024-07-15 07:04] LABS: Calcium* 8.3 mg/dL (8.4-10.6)
[2024-07-15 07:05] LABS: Slide Review Reflex No
[2024-07-15] MEDS: cefTRIAXone 1 GM in 0.9 % SODIUM CHLORIDE Mini-bag 100 ML IVPB (07:37)
[2024-07-15 07:38] LABS: PCR FLU A POSITIVE PCR FLU A (Negative); PCR FLU B Negative PCR FLU B (Negative); PCR RSV Negative PCR RSV (Negative); SARS PCR* Negative SARS-CoV-2 (Negative)
[2024-07-15 07:44] LABS: Procalcitonin* 0.14 ng/mL (<0.50)
[2024-07-15] MEDS: AZITHROMYCIN 500 MG in 0.9 % SODIUM CHLORIDE 250 ml 250 ML 255 MG IVPB (08:13)
--- NOTE | 2024-07-15 10:52 | P.IMHP_ITS ---
Hospitalist- H&P: HPI History of Present Illness Date Seen: 07/15/24 Chief complaint: Weakness Narrative: Maverick Irving is a 68 year old male with past medical history of cognitive impairment, lower body dementia, thoracic aortic aneurysm and history of chronic pancytopenia who presents to the ED due to weakness and agitation. Patient started with symptoms of cough with phlegm, malaise and altered mental status about 5 days ago, but he got worse over the past 48 hours and he fell down, it was a witnessed fall by the , yesterday at 10:00 p.m. and he hit his right cheek. At baseline, patient has cognitive impairment due to his Lewy body dementia history in addition to gait problems and falls. He follows with Neurology and is on medication. Per his patient is more confused and agitated, he usually is not agitated at home. History is mostly taken from the and she denies fevers as she was using a thermometer, patient did not have abdominal pain or diarrhea but had malaise and productive cough. Patient does not have problems with swallowing. At the ED patient was hemodynamically stable, mild pancytopenia, chest x-ray showed Asymmetrical right basilar coarse reticular opacities without coalescent consolidation. Findings are consistent with atypical (viral or mycoplasma) pneumonia. Review of Systems Status of ROS: Reports: 6 or more systems reviewed and unremarkable except as noted in History and below [facility] Medical History (Updated 07/15/24 @ 12:51 by Marielle Oreilly MD) Pancytopenia ?D61.818 - Other pancytopenia (ICD-10) Lewy body dementia ?G31.83 - Neurocognitive disorder with Lewy bodies (ICD-10) ?F02.80 - Dementia in other diseases classified elsewhere, unspecified severity, without behavioral disturbance, psychotic disturbance, mood disturbance, and anxiety (ICD-10) Cognitive impairment ?R41.89 - Other symptoms and signs involving cognitive functions and awareness (ICD-10) Lacunar infarction ?I63.81 - Other cerebral infarction due to occlusion or stenosis of small artery (ICD-10) MCI (mild cognitive impairment) ?G31.84 - Mild cognitive impairment of uncertain or unknown etiology (ICD-10) Thoracic aortic aneurysm without rupture ?I71.20 - Thoracic aortic aneurysm, without rupture, unspecified (ICD-10) Hyperplastic colon polyp ?K63.5 - Polyp of colon (ICD-10) Bradycardia ?R00.1 - Bradycardia, unspecified (ICD-10) Syncope ?R55 - Syncope and collapse (ICD-10) Social History What is your current living situation?: I presently have a place to live Problems where you live: no known problems Problems where you live details: none In the past 12 months, utilities in danger of being shut off: no In past 12 months, lack of transportation kept you from medical appts, meetings, work, or getting things needed for daily living: no In the past 12 mos, have been you worried that your food would run out before you had money to buy more?: never true In the past 12 mos, the food you bought just didn't last and you didn't have money to buy more?: never true Highest level of school completed/degree received: Associate degree: occupational, technical, vocational program Smoking Status: Never smoker Second hand tobacco smoke exposure: No How often do you have a drink containing alcohol: monthly or less How often do you have six or more drinks on one occasion: Never AUDIT-C Alcohol total score: 1 Non-prescribed substance use: denies use Caffeine: Yes (Coffee) How often does anyone, including family, friends and others, physically hurt you : never How often does anyone, including family, friends and others, insult or talk down to you: never How often does anyone, including family, friends and others, threaten you with harm: never How often does anyone, including family, friends and others, scream or curse at you: never Meds Home Medications and Allergies Home Medications ?Medication ?Instructions ?Recorded ?Confirmed ?Type carbidopa 25 mg-levodopa 100 mg 0.5 tab PO DIRECTED 07/15/24 07/15/24 History tablet donepezil 5 mg tablet 5 mg PO DAILY 07/15/24 07/15/24 History Allergies Allergy/AdvReac Type Severity Reaction Status Date / Time No Known Drug Allergies Allergy Verified 01/21/23 12:38 Exam Narrative: Exam Narrative: Physical exam GENERAL: Sleepy, confused, no acute distress. HEAD AND NECK: Atraumatic, normocephalic. 1 cm contusion on Rt cheek. CARDIOVASCULAR: RRR. Normal S1, S2. No murmurs. RESPIRATORY: Clear to auscultation B/L. Good air entry B/L. No wheezes or rhonchi. GASTROINTESTINAL: Not distended, not tender to palpation. NEUROLOGY: Confuse. Normal speech. PSYCH: Unable to assess. Const: Vital Signs, click to edit/add: Vital Signs - 24 hr 07/15/24 06:02 07/15/24 06:50 07/15/24 09:55 Temperature 98.6 F 99.5 F Pulse Rate [Pulse Oximeter] 73 Pulse Rate [Right Pulse Oximeter] 80 Respiratory Rate 20 Blood Pressure [Le ft Arm] 117/52 L Blood Pressure [Ri ght Upper Arm] 133/69 Pulse Oximetry 96 96 94 Oxygen Delivery Me thod Room Air Room Air Hospitalist - H&P: Result Labs Labs: Short CBC 07/15/24 Range/Units 06:32 WBC 3.93 L (4.50-11.00) K/uL Hgb 12.6 L (13.5-17.5) gm/dL Hct 36.8 L (37.0-53.0) % Plt Count 107 L (140-440) K/uL BMP 07/15/24 06:32 Sodium 132 L Potassium 4.3 Chloride 99 Carbon Dioxide 27 BUN 18 Creatinine 0.8 Glucose 128 H Calcium 8.3 L Liver Function 07/15/24 Range/Units 06:32 Total Bilirubin 0.6 (0.1-1.5) mg/dL AST 23 (12-35) U/L ALT 16 (4-50) U/L Alkaline Phosphatase 43 (40-150) U/L Albumin 3.8 (3.3-5.0) g/dL Imaging Chest x-ray: Attestation: I have reviewed the pertinent imaging results. Radiologist's impression: TECHNIQUE: 1 view. FINDINGS: The patient is slightly rotated rightward. Medical Devices: None. Lung Volumes: Adequate inspiration. No significant atelectasis. Lungs: Asymmetrical right basilar coarse reticular opacities without coalescent consolidation. Findings are consistent with atypical (viral or mycoplasma) pneumonia. The left lung is clear. Pleura and Pleural spaces: No significant pleural effusion. No pneumothorax. Mediastinum: Normal cardiomediastinal silhouette. Bony Thorax and Soft Tissues: No significant incidental findings. IMPRESSION: Asymmetrical right basilar coarse reticular opacities without coalescent consolidation. Findings are consistent with atypical (viral or mycoplasma) pneumonia. No associated right parapneumonic effusion. Dictated by Nabil Benz MD @ 07/15/2024 6:49:52 AM (Electronically Signed) Assessment and Plan Assessment and plan (1) Encephalopathy: Problem comment: -Hx of Lewi body dementia, patient has confusion at baseline but currently he is more confused and is agitated which is not usual for him. -patient is currently on carbidopa/levodopa and donepezil for treatment of Lewy body dementia. -patient has problems with his gait and has cognitive impairment due to his disease. -likely this acute AMS is due to influenza A infection/ PNA. -will treat for atypical pneumonia. Status: Acute (2) Atypical pneumonia: Problem comment: -Flu A +ve -Symptoms started 5 days ago, he likely will not benefit from Tamiflu at this time she like. -CXR showed: Asymmetrical right basilar coarse reticular opacities without coalescent consolidation. Findings are consistent with atypical (viral or mycoplasma) pneumonia. -ordered urine antigen for pneumonia and legionella. -F/up Bl Cx. -will treat empirically for now, for hospitalized patients will start treatment with ceftriaxone plus a macrolide (first-line). Status: Acute (3) Influenza A: Problem comment: -Symptoms started 5 days ago, he likely will not benefit from Tamiflu at this time. -CXR showed: Asymmetrical right basilar coarse reticular opacities without coalescent consolidation. Findings are consistent with atypical (viral or mycoplasma) pneumonia. Status: Acute (4) Lewy body dementia: Problem comment: -symptoms started 3 years ago, but diagnosis was confirmed recently. -patient is currently on carbidopa/levodopa and donepezil. -patient has problems with his gait and has cognitive impairment due to his d isease. Status: Chronic (5) Frequent falls: Problem comment: -Last fall was yesterday around 10:00 p.m. 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 -needs to follow-up as an outpatient Status: Acute (8) Thoracic aortic aneurysm without rupture: Problem comment: -size ~ 4 cm -F/up is done outpt Status: Acute Total Time Spent Total Time Spent: Time spent: Today I spent 75 minutes seeing the patient, discussing the patient with ER staff, reviewing Expanse and EPIC notes/diagnostics, discussing the care plan with our care time that includes social work, PT/OT, pharmacy, RT, mcfp and documenting my impressions and plan in the medical record.
[2024-07-15] MEDS: 0.9 % SODIUM CHLORIDE 1000 ml 1,000 ML IV (12:19)
[2024-07-15] MEDS: 0.9 % SODIUM CHLORIDE 1000 ml 1,000 ML 100 ML IV (13:25)
[2024-07-15 13:50] LABS: Appearance Urine Clear (Clear); Bilirubin Urine Negative (Negative); Blood Urine Trace-intact (Negative); Color Urine Yellow (Yellow); Glucose Urine Negative (Negative); Ketones Urine Negative (Negative); Leukocyte Esterase Urine Negative (Negative); Nitrite Urine Negative (Negative); Protein Urine Negative (Negative); pH Urine 6.5 (5.0-8.5)
[2024-07-15] MEDS: CARBIDOPA-LEVODOPA 25-100 TABLET 1 TAB PO ×2 (14:05→20:25)
[2024-07-15 14:17] LABS: RBC Urine 0-2 (0-2); WBC Urine 0-2 (0-5)
--- NOTE | 2024-07-15 15:37 | REH.OT ---
OT/PT orders received, chart reviewed, noted hx of lewy body dementia, currently having more confusion with infection. Patient restless, confused, had been incontinent in bed, then resting, RN requests to see tomorrow. Will reschedule.
--- NOTE | 2024-07-15 19:18 | PC.NURSE ---
End of Shift: Patient cooperative. VSS, afebrile. SpO2 maintained above 90% on RA. Tolerating regular diet. 2A with walker and gait belt to commode this shift. Bed alarm on.
[2024-07-15] MEDS: MELATONIN 3 MG TABLET PO (20:25)
[2024-07-15] MEDS: DONEPEZIL 5 MG TABLET PO (20:26)
[2024-07-15] MEDS: ENOXAPARIN 40 MG/0.4 ML INJ SUBCUT (20:26)
[2024-07-16] VITALS (7 sets, daily range): BP systolic 105–129; BP diastolic 59–85; PULSE 55–65; RESP 16–18; TEMP 36.4–36.8; O2SAT 95–99
[2024-07-16] MEDS: 0.9 % SODIUM CHLORIDE 1000 ml 1,000 ML 100 ML IV (02:09)
--- NOTE | 2024-07-16 06:12 | PC.NURSE ---
End of shift note [id number]: Pt alert & oriented to self only with baseline dementia. Pt requires assist of 2 with FWW and gait belt to transfer to BSC. Pt continent of bladder. IV NS administered per order. No c/o pain or N/V throughout the shift. Pt able to reposition independently when in bed. Tele in place with NSR noted. Pt has slept comfortably throughout the shift. Bed alarm on, call light within reach. ?
[2024-07-16] MEDS: AZITHROMYCIN 500 MG in 0.9 % SODIUM CHLORIDE 250 ml 250 ML 255 MG IVPB (06:24)
[2024-07-16] MEDS: CARBIDOPA-LEVODOPA 25-100 TABLET 1 TAB PO ×3 (06:28→21:01)
[2024-07-16 06:44] LABS: Hematocrit 33.6 % (37.0-53.0); Hemoglobin* 11.1 gm/dL (13.5-17.5); Mean Corpuscular HGB Conc 33 gm/dL (32-36); Mean Corpuscular Hemoglobin 28 pg (26-34); Mean Corpuscular Volume 86 fL (80-100); Platelet Count* 99 K/uL (140-440); Red Blood Count 3.91 m/uL (4.30-5.90); White Blood Count* 2.93 K/uL (4.50-11.00)
[2024-07-16 06:56] LABS: Slide Review Reflex No
[2024-07-16 07:02] LABS: Chloride* 106 mmol/L (96-114); Sodium* 137 mmol/L (135-149)
[2024-07-16 07:05] LABS: Creatinine* 0.8 mg/dL (0.5-1.5); Est. Creatinine Clearance* 62.34; Estimated Glomerular Filt Rate 96 ml/min
[2024-07-16 07:06] LABS: Anion Gap 7 mEq/L (7-15); Blood Urea Nitrogen* 19 mg/dL (7-30); Carbon Dioxide* 24 mmol/L (20-32); Glucose* 88 mg/dL (60-115)
[2024-07-16] MEDS: cefTRIAXone 1 GM in 0.9 % SODIUM CHLORIDE Mini-bag 100 ML IVPB (08:46)
[2024-07-16 10:15] LABS: Legionella pneumo Ag Urine L. pneumo Negative (Negative); S pneumo Ag Urine S. pneumo Negative (Negative)
--- NOTE | 2024-07-16 13:12 | P.IMPN_ITS ---
Progress Note: A&P Assessment and plan (1) Encephalopathy: Problem details: -Improving encephalopathy, patient is alert awake today July 16, and answering questions appropriately -Hx of Lewi body dementia, patient has confusion at baseline but currently he is more confused and is agitated which is not usual for him. -patient is currently on carbidopa/levodopa and donepezil for treatment of Lewy body dementia. -patient has problems with his gait and has cognitive impairment due to his d isease. -likely this acute AMS is due to influenza A infection/ PNA. -will treat for atypical pneumonia. Status: Acute (2) Atypical pneumonia: Problem details: -Flu A +ve -Symptoms started 5 days ago, he likely will not benefit from Tamiflu at this time she like. -CXR showed: Asymmetrical right basilar coarse reticular opacities without coalescent consolidation. Findings are consistent with atypical (viral or mycoplasma) pneumonia. -ordered urine antigen for pneumonia and legionella. -F/up Bl Cx. -will treat empirically for now, for hospitalized patients will start treatment with ceftriaxone plus a macrolide (first-line). Status: Acute (3) Influenza A: Problem details: -Symptoms started 5 days ago, he likely will not benefit from Tamiflu at this time. -CXR showed: Asymmetrical right basilar coarse reticular opacities without coalescent consolidation. Findings are consistent with atypical (viral or mycoplasma) pneumonia. Status: Acute (4) Lewy body dementia: Problem details: -symptoms started 3 years ago, but diagnosis was confirmed recently. -patient is currently on carbidopa/levodopa and donepezil. -patient has problems with his gait and has cognitive impairment due to his disease. Status: Chronic (5) Frequent falls: Problem details: -Last fall was yesterday around 10:00 p.m. 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 -needs to follow-up as an outpatient Status: Acute (8) Thoracic aortic aneurysm without rupture: Problem details: -size ~ 4 cm -F/up is done outpt Status: Acute Time Spent With Patient Total time spent: Today I spent 50 minutes seeing the patient, reviewing Expanse and EPIC notes/diagnostics, discussing the care plan with our care time that includes social work, PT/OT, pharmacy, RT, chcf and documenting my impressions and plan in the medical record. Subjective Date Seen: 07/16/24 Interval history: No acute events overnight, patient states that he feels much better and he was less confused than yesterday, today he is alert awake and answering questions appropriately, we need physical therapy and occupational therapy recommendations for discharge. Exam Narrative: Exam Narrative: Physical exam GENERAL: Comfortable, no acute distress. HEAD AND NECK: Atraumatic, normocephalic CARDIOVASCULAR: RRR. Normal S1, S2. No murmurs. RESPIRATORY: Clear to auscultation B/L. Good air entry B/L. No wheezes or rhonchi. GASTROINTESTINAL: Not distended, not tender to palpation. NEUROLOGY: Alert, awake, oriented X 2. Normal speech. Answering questions appropriately. PSYCH: Normal mood, normal affect. Const: Vital Signs, click to edit/add: Vital Signs - 24 hr 07/15/24 14:08 07/15/24 14:40 07/15/24 16:19 Temperature 98.0 F Pulse Rate 63 Pulse Rate [Pulse Oximeter] 64 Respiratory Rate 20 20 Blood Pressure [Le ft Arm] 104/55 L Pulse Oximetry 94 94 Oxygen Delivery Il thod Room Air Room Air 07/15/24 17:31 07/15/24 20:23 07/15/24 22:18 Temperature 99.2 F Pulse Rate Pulse Rate [Pulse Oximeter] 64 64 64 Respiratory Rate 20 20 20 Blood Pressure [Le ft Arm] 118/65 Pulse Oximetry 94 [facility] 07/15/24 22:35 07/15/24 23:00 07/16/24 03:00 Temperature 97.9 F 97.5 F L Pulse Rate 65 Pulse Rate [Pulse Oximeter] 60 60 Respiratory Rate 16 17 Blood Pressure [Le ft Arm] 103/54 L 117/68 Pulse Oximetry 96 95 Oxygen Delivery Il thod Room Air Room Air 07/16/24 08:00 07/16/24 08:00 07/16/24 12:38 Temperature 97.8 F Pulse Rate 64 Pulse Rate [Pulse Oximeter] 65 65 Respiratory Rate 18 18 Blood Pressure [Le ft Arm] 129/74 Pulse Oximetry 96 [facility] 07/16/24 12:42 Temperature 98.1 F Pulse Rate Pulse Rate [Pulse Oximeter] 57 L Respiratory Rate 18 Blood Pressure [Le ft Arm] 105/59 L Pulse Oximetry 96 Oxygen Delivery Me thod Room Air Labs Labs: Laboratory Results - last 24 hr 07/15/24 07/16/24 13:41 05:35 WBC 2.93 L RBC 3.91 L Hgb 11.1 L Hct 33.6 L MCV 86 MCH 28 MCHC 33 Plt Count 99 L Sodium 137 Potassium 4.0 Chloride 106 Carbon Dioxide 24 Anion Gap 7 BUN 19 Creatinine 0.8 Estimated Creat Clear 62.34 Estimated GFR 96 Glucose 88 Calcium 8.0 L Urine Color Yellow Urine Appearance Clear Urine pH 6.5 Ur Specific [place] 1.010 Urine Protein Negative Urine Glucose (UA) Negative Urine Ketones Negative Urine Blood Trace-intact A Urine Nitrite Negative Urine Bilirubin Negative Urine Urobilinogen 1.0 Ur Leukocyte Esterase Negative Urine RBC 0-2 Urine WBC 0-2 Ur Squamous Epith Cells None Urine Bacteria None Urine L. pneumophilia Ag L. pneumo Negative Urine Strep pneumoniae Ag S. pneumo Negative
--- NOTE | 2024-07-16 15:35 | PC.NURSE ---
End of Shift: Patient pleasant & cooperative. VSS, afebrile. Patient denies pain this shift. Tolerating regular diet. 1A to bathroom with gait belt and walker this shift.
[2024-07-16] MEDS: ENOXAPARIN 40 MG/0.4 ML INJ SUBCUT (21:01)
[2024-07-16] MEDS: MELATONIN 3 MG TABLET PO (21:01)
[2024-07-16] MEDS: SODIUM CHLORIDE 0.9 % (FLUSH) 10 ML SYRINGE 5 ML IVF (21:01)
[2024-07-16] MEDS: DONEPEZIL 5 MG TABLET PO (21:01)
--- NOTE | 2024-07-16 23:28 | PC.NURSE ---
Pt oriented to self and vitally stable. Tele read sinus susie. Pt moves via 1a walker and gaitbelt to bathroom, though does need redirection. Pt able to take pills whole. Lung sounds crackles, expiratory wheeze bilaterally. Pt in bed, appears to be resting, call light within reach and bed alarm on.
[2024-07-17 03:00] VITALS: BP 103/57; PULSE 54; RESP 16; TEMP 36.8; O2SAT 97
--- NOTE | 2024-07-17 05:42 | PC.NURSE ---
[id number] Pt slept well during night, impulsively gets out of bed to go to BR, ambulates with walker, GB and 1A, tolerating activity well. Afebrile during shift, denies pain.
[2024-07-17 06:33] LABS: Hematocrit 33.7 % (37.0-53.0); Hemoglobin* 11.4 gm/dL (13.5-17.5); Mean Corpuscular HGB Conc 34 gm/dL (32-36); Mean Corpuscular Hemoglobin 29 pg (26-34); Mean Corpuscular Volume 85 fL (80-100); Platelet Count* 112 K/uL (140-440); Red Blood Count 3.97 m/uL (4.30-5.90); White Blood Count* 2.43 K/uL (4.50-11.00)
[2024-07-17 06:34] LABS: Slide Review Reflex No
[2024-07-17] MEDS: CARBIDOPA-LEVODOPA 25-100 TABLET 1 TAB PO ×2 (06:48→13:50)
[2024-07-17] MEDS: AZITHROMYCIN 500 MG in 0.9 % SODIUM CHLORIDE 250 ml 250 ML 255 MG IVPB (06:48)
[2024-07-17 06:49] LABS: Chloride* 106 mmol/L (96-114); Potassium* 4.2 mmol/L (3.6-5.1); Sodium* 137 mmol/L (135-149)
[2024-07-17] MEDS: SODIUM CHLORIDE 0.9 % (FLUSH) 10 ML SYRINGE 5 ML IVF (06:49)
[2024-07-17 06:52] LABS: Anion Gap 6 mEq/L (7-15); Blood Urea Nitrogen* 22 mg/dL (7-30); Carbon Dioxide* 25 mmol/L (20-32); Creatinine* 0.8 mg/dL (0.5-1.5); Est. Creatinine Clearance* 62.34; Estimated Glomerular Filt Rate 96 ml/min; Glucose* 105 mg/dL (60-115)
[2024-07-17 06:53] LABS: Calcium* 8.4 mg/dL (8.4-10.6)
[2024-07-17] MEDS: 0.9 % SODIUM CHLORIDE 250 ml IV (06:53)
[2024-07-17 07:00] VITALS: PULSE 58; RESP 18
[2024-07-17] MEDS: cefTRIAXone 1 GM in 0.9 % SODIUM CHLORIDE Mini-bag 100 ML IVPB (08:13)
[2024-07-17 08:20] VITALS: BP 110/61; PULSE 58; RESP 18; TEMP 36.4; O2SAT 97
[2024-07-17 10:27] VITALS: PULSE 56
[2024-07-17 11:17] VITALS: BP 113/63; PULSE 58; RESP 18; TEMP 36.7; O2SAT 98
--- NOTE | 2024-07-17 12:38 | PM.DS1 ---
DS: Providers Provider Date Seen: 07/17/24 Date of admission: 07/15/24 14:32 Primary care physician: Yaneth Wild DO Admitting Clinician: Jaqui Vicente MD Consults: 07/15/24 11:13 Consult to Occupational Therapy [CONS] Routine Comment: Reason(s) for OT Consult:: Evaluate and Treat Any Restrictions?:: No Restrictions Consult to Physical Therapy [CONS] Routine Comment: Reason(s) for PT Consult:: Evaluate and Treat Any Restrictions?:: No Restrictions Consult to Diesel Service Apprentice [CONS] Routine Comment: Reason for Consult:: Discharge Planning Needs Attending Physician on discharge: Marielle Oreilly MD DS: Diagnosis Discharge Diagnosis (1) Encephalopathy: Status: Resolved Problem details: -Improving encephalopathy, patient is alert awake today July 16, and answering questions appropriately -Hx of Lewi body dementia, patient has confusion at baseline but currently he is more confused and is agitated which is not usual for him. -patient is currently on carbidopa/levodopa and donepezil for treatment of Lewy body dementia. -patient has problems with his gait and has cognitive impairment due to his disease. -likely this acute AMS is due to influenza A infection/ PNA. -will treat for atypical pneumonia. (2) Atypical pneumonia: Status: Acute Problem details: -Flu A +ve -Symptoms started 5 days ago, he likely will not benefit from Tamiflu at this time she like. -CXR showed: Asymmetrical right basilar coarse reticular opacities without coalescent consolidation. Findings are consistent with atypical (viral or mycoplasma) pneumonia. -ordered urine antigen for pneumonia and legionella: -ve -F/up Bl Cx: -ve for 48 hrs -will treat empirically, for hospitalized patients will start treatment with ceftriaxone plus a macrolide (first-line). -complete a course of antibiotic at home with oral cefdinir and oral azithromycin, and follow-up with your primary care physician. (3) Influenza A: Status: Acute Problem details: -Symptoms started 5 days ago, he likely will not benefit from Tamiflu at this time. -CXR showed: Asymmetrical right basilar coarse reticular opacities without coalescent consolidation. Findings are consistent with atypical (viral or mycoplasma) pneumonia. (4) Lewy body dementia: Status: Chronic Problem details: -symptoms started 3 years ago, but diagnosis was confirmed recently. -patient is currently on carbidopa/levodopa and donepezil. -patient has problems with his gait and has cognitive impairment due to his disease. (5) Frequent falls: Status: Acute Problem details: -Last fall was yesterday around 10:00 p.m. 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 -needs to follow-up as an outpatient (8) Thoracic aortic aneurysm without rupture: Status: Acute Problem details: -size ~ 4 cm -F/up is done outpt DS: Summary Hospital Course Hospital Course: A 68 year old male patient with past medical history of Lewy body dementia, cognitive impairment, frequent falls, pancytopenia, thoracic aortic aneurysm who presents to the ED due to encephalopathy & agitation. Patient was hemodynamically stable. Influenza A came back +ve. His chest x-ray suggested atypical pneumonia and patient was started empirically on ceftriaxone and azithromycin. Patient improved immensely after starting antibiotics and he is back to his baseline. We consulted PT/OT to evaluate and treat him, who states that he can benefit from home health PT OT, discussion has been done with the and she elected to take him home, she said she will have assistance from other family members to help her, in addition we will order home health PT/OT to to help at home. Status at Discharge Functional status at discharge: uses cane/walker Overall status at discharge: patient is back to baseline Time Spent with Patient Time attestation: Total time spent providing and/or coordinating discharge services: 50 Exam Narrative: Exam Narrative: Physical exam GENERAL: Comfortable, no acute distress. HEAD AND NECK: Atraumatic, normocephalic CARDIOVASCULAR: RRR. Normal S1, S2. No murmurs. RESPIRATORY: Clear to auscultation B/L. Good air entry B/L. NEUROLOGY: Alert, awake PSYCH: Normal mood, normal affect. Const: Vital Signs, click to edit/add: Vital Signs - 24 hr 07/16/24 12:42 07/16/24 15:00 07/16/24 15:00 Temperature 98.1 F 98.3 F Pulse Rate 58 L Pulse Rate [Pulse Oximeter] 57 L 61 Respiratory Rate 18 16 Blood Pressure [Le ft Arm] 105/59 L 110/62 Pulse Oximetry 96 99 Oxygen Delivery Me thod Room Air Room Air 07/16/24 15:00 07/16/24 19:00 07/16/24 23:00 Temperature 98.1 F Pulse Rate Pulse Rate [Pulse Oximeter] 61 56 L Respiratory Rate 16 16 16 Blood Pressure [Le ft Arm] 117/61 Pulse Oximetry [facility] 07/16/24 23:00 07/16/24 23:00 07/17/24 03:00 Temperature 97.7 F 98.2 F Pulse Rate 55 L Pulse Rate [Pulse Oximeter] 57 L 54 L Respiratory Rate 16 16 Blood Pressure [Le ft Arm] 118/85 103/57 L Pulse Oximetry 97 97 [facility] Air 07/17/24 07:00 07/17/24 08:20 07/17/24 10:27 Temperature 97.6 F Pulse Rate 56 L Pulse Rate [Pulse Oximeter] 58 L 58 L Respiratory Rate 18 18 Blood Pressure [Le ft Arm] 110/61 Pulse Oximetry 97 [facility] 07/17/24 11:17 Temperature 98.0 F Pulse Rate Pulse Rate [Pulse Oximeter] 58 L Respiratory Rate 18 Blood Pressure [Le ft Arm] 113/63 Pulse Oximetry 98 [facility] DS: Data Data Completed and Pending Labs on day of discharge: Labs from last 24 hours 07/17/24 05:34 WBC 2.43 L RBC 3.97 L Hgb 11.4 L Hct 33.7 L MCV 85 MCH 29 MCHC 34 Plt Count 112 L Sodium 137 Potassium 4.2 Chloride 106 Carbon Dioxide 25 Anion Gap 6 L BUN 22 Creatinine 0.8 Estimated Creat Clear 62.34 Estimated GFR 96 Glucose 105 Calcium 8.4 Preliminary micro results at discharge 07/15/24 07:26 Blood Culture - Preliminary Blood NO GROWTH AFTER 48 HOURS Discharge Plan Discharge Disposition: Home w/ Parent or Adult Date of Admission: 07/15/24 14:32 Attending Provider on Discharge: Marielle Oreilly Primary Care Provider: Yaneth Wild Condition: Stable Anticipated Discharge Date/Time: 07/17/24 12:29 Discharge Medications: New cefdinir 300 mg capsule 300 mg PO BID Qty: 10 0RF azithromycin 500 mg tablet 500 mg PO DAILY 3 Days Qty: 3 0RF Continued carbidopa-levodopa 25-100 mg tablet 1 tab PO TID Patient Comments: TAKE 1/2 TABLET 3 TIMES DAILY FOR 1 WEEK. IF SYMPTOMS NOT BETTER, INCREASE 1/2 TABLET 3 TIMES DAILY EVERY WEEK NEEDED.MAX:3 TABS 3 TIMES DAILY. donepezil 5 mg tablet 5 mg PO HS Discharge Orders: Discharge Order (Routine); Ordered 07/17/24 Ordered By: Marielle Oreilly Patient Education: Community Acquired Pneumonia (IP) Additional Instructions: You need to complete a course of antibiotic prescribed for you. You need to follow-up with your primary care physician within 1-2 weeks. We will order physical therapy/occupational therapy home health for you. Activity Level: Activity as Tolerated Discharge Diet: Regular Follow Up Appointments: Yaneth Wild DO [Primary Care Provider] - Forms: [facility] Info Instructions
--- NOTE | 2024-07-17 14:09 | PC.NURSE ---
Discharge: Patient pleasant and cooperative, VSS, afebrile. SpO2 maintained above 90% on RA. 1A with walker and gait belt. Discharge instructions provided, all questions answered. IV removed with tip intact. Discharged to home with .
--- NOTE | 2024-07-18 09:30 | PC.SOCIAL ---
Social work: PT was discharged on 07/17/24. Home health order for PT/OT received by social work. Called pt's Emilia [phone] to discuss social work following up on this order to arrange home care. states she is refusing home care at this time and had thought she communicated this with hospital staff yesterday. is aware she can contact pt's primary care physician to initiate order in the future if needed.
== END 2024-07-17 13:58 | disposition home or self-care (01) | DRG 70 ==
LOC: ED 08:14 → MEDSURG 09:30
PROVIDERS: Student in an Organized Health Care Education/Training Program; Admitting Provider Family Medicine; Emergency Provider Internal Medicine; PCP Family Medicine; Visit Provider Family Medicine
DX: G93.41 Metabolic encephalopathy (principal); J10.00 Influenza due to other identified influenza virus with unspecified type of pneumonia; F02.811 Dementia in other diseases classified elsewhere, unspecified severity, with agitation; D61.818 Other pancytopenia; G31.83 Neurocognitive disorder with Lewy bodies; I71.20 Thoracic aortic aneurysm, without rupture, unspecified; Z91.81 History of falling
CPT/HCPCS: 36415; 70450; 71045; 72125; 80048; 80053; 81001; 81003; 83605; 84145; 85025; 85027; 87040; 87449; 87631; 87899; 94761; 97110; 97116; 97161; 97166; 97535; 99284; 99285; A9270; G0378; J0456; J0696; J1650; J7030; J7050